=== PATIENT | male | born 1985 | race Caucasian/White ===

== ENCOUNTER 2024-06-16 18:09 | Emergency (ER) | payer OTHER, SELFPAY ==
[2024-06-16 18:22] VITALS: BP 137/88; PULSE 79; RESP 16; TEMP 36.8; O2SAT 99; BMI 25.0
--- NOTE | 2024-06-16 18:32 | DI.RAD.S_ITS ---
PROCEDURE: XR SHOULDER LT MIN 2V INDICATIONS: shoulder injury TECHNIQUE: 3 views of the shoulder were acquired. COMPARISON: None. FINDINGS: Bones: Curvilinear calcification projecting along the medial aspect of the humerus metadiaphysis. No suspicious bony lesions. Visualized ribs appear intact. Soft tissues: No suspicious soft tissue calcifications. IMPRESSION: Curvilinear calcification projecting along the medial aspect of the humerus metadiaphysis. Unclear etiology, but chip fracture from the glenoid is a consideration. Dictated by: Simon Bain M.D. on 06/16/2024 at 18:56 Approved by: Simon Bain M.D. on 06/16/2024 at 18:58
--- NOTE | 2024-06-16 20:03 | ED.GENADULT ---
HPI - General Adult General Chief complaint: Extremity Injury, Upper Stated complaint: lt arm injury Time Seen by Provider: 06/16/24 18:32 Source: patient Mode of arrival: Ambulatory History of Present Illness HPI narrative: Patient was a 38-year-old male who is here for evaluation of a left shoulder injury and concern for dislocation. He states he was dislocated his left shoulder multiple times (greater than 20 times per his report) in the past. He states that today he was lifting up a board while building a house and felt like his shoulder dislocated. He felt like that he reduced it afterwards. He went to the clinic over on [address] and had an x-ray. Unfortunately this is not available for my review. Patient states they told him that it looked ?partially dislocated. He states that he was now having some clicking of the shoulder. He states that it feels very abnormal to him since the event earlier today. Related Data Allergies Allergy/AdvReac Type Severity Reaction Status Date / Time cefaclor [From Ceclor] AdvReac Hives Verified 04/07/20 14:12 Sulfa (Sulfonamide AdvReac hives Verified 04/07/20 14:12 Antibiotics) Review of Systems Review of Systems Narrative: See HPI Patient History Medical History No active medical problems Social History Smoking Status: Current every day smoker alcohol intake: current Smoking Status: Current every day smoker Exam Initial Vital Signs Initial Vital Signs: Vital Signs Temperature 98.3 F 06/16/24 18:22 Pulse Rate 79 06/16/24 18:22 Respiratory Rate 16 06/16/24 18:22 Blood Pressure 137/88 06/16/24 18:22 Pulse Oximetry 99 06/16/24 18:22 Oxygen Delivery Method Room Air 06/16/24 18:22 Const General: cooperative and comfortable Skin General: no rashes or lesions noted Extrem Other: Patient does have range of motion of his left shoulder and can flex and extend although it does appear to have some laxity with active movement. Course Orders Ordered: ED Orders 06/16/24 18:32 XR shoulder LT min 2V Stat Vital Signs Vital signs: Vital Signs - 8 hr 06/16/24 18:22 06/16/24 20:05 Temperature 98.3 F Pulse Rate 79 82 Respiratory Rate 16 Blood Pressure 137/88 146/84 H Pulse Oximetry 99 98 Oxygen Delivery Method Room Air Room Air Medical Decision Making Imaging Data Extremity x-ray #1: Radiologist's Impression: PROCEDURE: XR SHOULDER LT MIN 2V INDICATIONS: shoulder injury TECHNIQUE: 3 views of the shoulder were acquired. COMPARISON: None. FINDINGS: Bones: Curvilinear calcification projecting along the medial aspect of the humerus metadiaphysis. No suspicious bony lesions. Visualized ribs appear intact. Soft tissues: No suspicious soft tissue calcifications. IMPRESSION: Curvilinear calcification projecting along the medial aspect of the humerus metadiaphysis. Unclear etiology, but chip fracture from the glenoid is a consideration. MDM Narrative Medical decision making narrative: X-ray today shows no acute fracture or dislocation. Given the patient's symptoms I would not be surprised if he was having some subluxation of his shoulder given what he describes and the fact that he was dislocated multiple times in the past. Patient was somewhat concerned about this diagnosis as he states it does feel very abnormal to him. Offered to obtain a CT scan to confirm that the shoulder is in fact in place which I suspect that it is based on his exam and also the x-ray today. There was no indication for an MRI out of the emergency department. I did tell him that he most likely is having some subluxation issues and will most likely need follow-up with physical therapy and/or Orthopedic surgery where they potentially would want to do an MRI as an outpatient. Patient seems to be very upset at this discussion and concern that we are missing a dislocation however he states that he does not want to stay for a CT scan for confirmation because he needs to get on a [place] in order to return back to the [place] where he lives. Recommended that he follow up with his primary care doctor. Discharge Plan Departure Patient Disposition: Home Clinical Impression: Injury of shoulder, left Activity Restrictions/Additional Instructions: The x-ray in the emergency department today did not show any signs of a dislocation. You opted not to have a CT scan to confirm this. Recommend that you contact your primary doctor for referral to see either physical therapy and or an orthopedic surgeon to discuss further evaluation and treatment. Referrals: Rose Mecnhaca MD [Primary Care Provider] - Stand Alone Forms: Patient Portal/API/Survey
[2024-06-16 20:05] VITALS: BP 146/84; PULSE 82; O2SAT 98
== END 2024-06-16 20:05 | disposition home or self-care (01) ==
PROVIDERS: Emergency Provider Emergency Medicine; PCP Family Medicine
DX: S49.92XA Unspecified injury of left shoulder and upper arm, initial encounter (principal); X50.9XXA Other and unspecified overexertion or strenuous movements or postures, initial encounter
CPT/HCPCS: 73030; 99281; 99283

== ENCOUNTER → 2024-06-28 | Outpatient (CLI) | payer OTHER, SELFPAY ==
--- NOTE | 2024-06-28 12:38 | DI.MRI.S_ITS ---
PROCEDURE: MR SHOULDER LT WO CON INDICATIONS: ACUTE PAIN OF LEFT SHOULDER/HX ROTATOR CUFF TEAR TECHNIQUE: Noncontrast oblique coronal T2 fast spin echo with fat saturation, oblique sagittal T1 spin echo and T2 fast spin echo with fat saturation, axial T1 spin echo and T2 fast spin echo with fat saturation through the shoulder. COMPARISON: None. FINDINGS: Image quality: Excellent. Rotator cuff: Low-grade articular surface partial-thickness tear involving distal supraspinatus at its insertion on the humeral head is seen extending to musculotendinous junction. Distal infraspinatus and subscapularis tendinosis is seen. No full-thickness rotator cuff tendon rupture. Sagittal images demonstrate no significant rotator cuff muscle atrophy. Bones and bursae: No bone marrow contusions or fractures. No acromioclavicular joint degeneration. Type 2 acromion without an os acromiale. Moderate joint effusion and small amount of subacromial subdeltoid bursal fluid. Tiny loose body is seen in dependent portion of glenohumeral joint space measures 3 mm in size. Series 6, image 13. Capsule and soft tissues: Signal abnormality and fraying of superior anterior glenoid labrum with T2 hyperintense signal suggestive of superior anterior labral tear. The long head of the biceps tendon demonstrates normal location and morphology. The rotator interval appears normal, without fibrosis. The coracohumeral ligament is normal in thickness. IMPRESSION: 1. Low-grade articular surface partial-thickness tear involving distal supraspinatus extending to musculotendinous junction. Distal infraspinatus and subscapularis tendinosis. No full-thickness rotator cuff tendon rupture. 2. No marrow edema. No fracture or dislocation. Moderate amount of glenohumeral joint effusion and subacromial subdeltoid bursal fluid with suggestion of a tiny 3 mm loose body in dependent portion of glenohumeral joint space. 3. Finding is suggestive of subtle superior anterior glenoid labral tear. Dictated by: Lai Niño M.D. on 06/28/2024 at 14:12 Approved by: Lai Niño M.D. on 06/28/2024 at 14:21
== END ==
PROVIDERS: PCP Family Medicine; Referring Provider Family Medicine; Visit Provider Family Medicine
DX: M75.112 Incomplete rotator cuff tear or rupture of left shoulder, not specified as traumatic (principal); M25.412 Effusion, left shoulder; M25.512 Pain in left shoulder; Y99.0 Civilian activity done for income or pay; Z87.39 Personal history of other diseases of the musculoskeletal system and connective tissue
CPT/HCPCS: 73221